=== PATIENT | female | born 1980 | race Caucasian/White ===

== ENCOUNTER 2021-08-26 14:14 | Outpatient (CLI) | payer OTHER ==
[~2021-08-26 14:14] MED LIST: PRENATAL CAPLE1 EACH PO
== END 2021-08-26 15:20 | disposition home or self-care (01) ==
LOC: PRENATAL 14:14
PROVIDERS: ATTEND Obstetrics & Gynecology Maternal & Fetal Medicine
DX: Z36.0 Encounter for antenatal screening for chromosomal anomalies (principal); Z3A.15 15 weeks gestation of pregnancy

== ENCOUNTER 2021-09-27 11:43 | Outpatient (CLI) | payer OTHER | END 2021-09-27 12:50 | disposition home or self-care (01) | LOC: PRENATAL 11:43 | PROVIDERS: ATTEND Obstetrics & Gynecology Maternal & Fetal Medicine | DX: O35.0XX0 Maternal care for (suspected) central nervous system malformation in fetus, not applicable or unspecified (principal); O35.3XX0 Maternal care for (suspected) damage to fetus from viral disease in mother, not applicable or unspecified; O09.529 Supervision of elderly multigravida, unspecified trimester; Z3A.20 20 weeks gestation of pregnancy ==